=== PATIENT | male | born 1965 | race Caucasian/White ===

== ENCOUNTER 2020-05-25 21:05 | Inpatient (IN) | payer BC ==
[~2020-05-25] VITALS: Ht 167.6 cm; Wt 82.3 kg
[2020-05-25 21:51] LABS: EOSINOPHILS % (AUTO) 0.1 % (0-6); NEUTROPHILS # (AUTO) 5.4 X10'3 (1.8-7.7)
[2020-05-25 21:54] LABS: BASOPHILS % (AUTO) 0.3 % (0-1); HEMATOCRIT 46.2 % (42.0-52.0); HEMOGLOBIN 15.5 g/dl (14.0-17.9); MEAN CORPUSCULAR HEMOGLOBIN 29.5 PG (27.0-31.0); MEAN CORPUSCULAR HGB CONC 33.5 g/dL (33.0-36.5); MEAN PLATELET VOLUME 7.7 FL (7.4-10.4); MONOCYTES # (AUTO) 0.6 X10'3 (0-0.9); MONOCYTES % (AUTO) 9.2 % (2-12); NEUTROPHILS % (AUTO) 76.4 % (42-75); PLATELET COUNT 194 X10'3 (140-440); RED BLOOD COUNT 5.25 X10'6 (4.70-6.10); RED CELL DISTRIBUTION WIDTH 14.6 % (11.5-14.5)
[2020-05-25] MEDS ORDERED: dexamethasone sod phosphate 10mg/ml inj IV STA (21:54)
[2020-05-25] MEDS ORDERED: normal saline 1000ML IV soln IV ONE (21:55)
[2020-05-25] MEDS ORDERED: enoxaparin 100mg/ml syringe SUBCUT ONE (21:55)
[2020-05-25 22:00] LABS: ALANINE AMINOTRANSFERASE 57 U/L (12-78); ALBUMIN/GLOBULIN RATIO 0.7 (1.1-1.5); ALKALINE PHOSPHATASE 66 IU/L (46-116); ANION GAP 14 (8-16); ASPARTATE AMINO TRANSFERASE 64 U/L (10-37); BILIRUBIN,TOTAL 0.4 MG/DL (0.1-1.0); BLOOD UREA NITROGEN 17 MG/DL (7-18); BUN/CREATININE RATIO 16.3 (5.4-32.0); CALCIUM 8.5 MG/DL (8.5-10.1); CHLORIDE 105 MMOL/L (99-107); CREATININE 1.04 MG/DL (0.60-1.10); GLUCOSE 128 MG/DL (70-104); POTASSIUM 4.4 MMOL/L (3.5-5.1); SODIUM 140 MMOL/L (135-145); TOTAL CARBON DIOXIDE 21.4 MMOL/L (24-32); TOTAL PROTEIN 7.4 G/DL (6.4-8.2); eGFR 74 ML/MIN
[2020-05-25] MEDS ORDERED: REMDESIVIR 100MG inj. 200 MG in normal saline 100ml IV soln 100 ML IV ONE (22:20)
--- NOTE | 2020-05-25 22:58 | NUR ---
PT DENIES MEDICAL HISTORY WHEN ASKED STATES "THROAT CANCER IS MY ONLY HISTORY" BUT THEN PROVIDED RN WITH A LIST OF MEDICATIONS THAT INCLUDE METFORMIN & LISINOPRIL. WILL ATTEMPT TO REACH FAMILY TO OBTAIN ACCURATE MEDICAL HX
[2020-05-25] MEDS ORDERED: DIPH25CA83 PO (23:03)
[2020-05-25] MEDS ORDERED: SIMV-42 PO (23:03)
[2020-05-25] MEDS ORDERED: METH4TAB PO (23:03)
[2020-05-25] MEDS ORDERED: DAPA10TA PO (23:03)
[2020-05-25] MEDS ORDERED: METF500T PO (23:03)
[2020-05-25] MEDS ORDERED: ASPI-920 PO (23:03)
[2020-05-25] MEDS ORDERED: LISI10TA4 PO (23:03)
[2020-05-25] MEDS ORDERED: BETA15OI TOP (23:03)
[2020-05-25] MEDS ORDERED: FLO0.4C PO (23:03)
[2020-05-25] MEDS ORDERED: ALBU8.5H8 INH (23:03)
[2020-05-25] MEDS ORDERED: SEMA0.25 SQ (23:03)
[2020-05-25] MEDS ORDERED: HYDR1LIQ3 PO (23:03)
[2020-05-25] MEDS ORDERED: FAMO-128 PO (23:03)
[2020-05-25] MEDS ORDERED: calcium carbonate 500mg chew tablet PO ONE (23:15)
[2020-05-25 23:18] LABS: D-DIMER 1.23 MG/L FEU (0-0.50)
[2020-05-25] MEDS ORDERED: acetaminophen 325mg tablet PO PRN (23:50)
[2020-05-25] MEDS ORDERED: magnesium hydroxide 30ml (MOM) UD suspension PO PRN (23:50)
[2020-05-25] MEDS ORDERED: mag hydrox/Alum hydrox/simeth 30ml oral suspension PO PRN (23:50)
[2020-05-25] MEDS ORDERED: potassium Cl 20 mEq SR tablet PO PRN ×2 (23:50)
[2020-05-25] MEDS ORDERED: ondansetron/PF 4mg/2ml inj IV PRN (23:50)
[2020-05-25] MEDS ORDERED: potassium Cl 40MEQ/1/2NS 520ml 520 ML IV PRN ×2 (23:50)
[2020-05-25] MEDS ORDERED: dextrose 50%-water 50ml dispensing syringe IV PRN ×2 (23:55)
[2020-05-25] MEDS ORDERED: diphenhydrAMINE 25mg capsule PO PRN (23:55)
[2020-05-25] MEDS ORDERED: dextrose ORAL solution 15 GM/59 ML bottle PO PRN ×2 (23:55)
[2020-05-25] MEDS ORDERED: MESSAGE TO PHARMACY PO ONE (23:55)
[2020-05-25] MEDS ORDERED: glucagon, human recombinant 1mg kit SUBCUT PRN (23:55)
[2020-05-26] MEDS ORDERED: HYDROmorphone 2mg tablet PO PRN (00:05)
[2020-05-26] MEDS: normal saline 1000ml 1,000 ML IV SCH ×4 (00:37→23:34)
[2020-05-26] MEDS: aspirin 81mg tablet.DR PO SCH (07:44)
[2020-05-26] MEDS: atorvastatin 10mg tablet PO SCH (07:44)
[2020-05-26] MEDS: K and/or MAG REPLACEMENT MC SCH ×2 (07:44→20:00)
[2020-05-26] MEDS: famotidine 20mg tablet PO SCH (07:44)
[2020-05-26] MEDS: lisinopril 10 MG tablet PO SCH (07:45)
[2020-05-26] MEDS: dexamethasone 4mg/ml inj IV SCH (07:47)
[2020-05-26] MEDS: betamet diprop/prop gly 0.05% cream 15gm TP SCH ×2 (07:56→20:06)
[2020-05-26] MEDS ORDERED: dexamethasone inj 6 MG in normal saline 100ml IV soln 100 ML IV SCH (08:00)
[2020-05-26 08:02] LABS: BASOPHILS % (AUTO) 0 % (0-1); EOSINOPHILS % (AUTO) 0 % (0-6); HEMATOCRIT 46.2 % (42.0-52.0); HEMOGLOBIN 15.6 g/dl (14.0-17.9); LYMPHOCYTES # (AUTO) 0.8 X10'3 (1.1-4.8); MEAN CORPUSCULAR HEMOGLOBIN 30.1 PG (27.0-31.0); MEAN CORPUSCULAR HGB CONC 33.7 g/dL (33.0-36.5); MEAN CORPUSCULAR VOLUME 89.4 FL (78-98); MEAN PLATELET VOLUME 7.5 FL (7.4-10.4); MONOCYTES # (AUTO) 0.3 X10'3 (0-0.9); MONOCYTES % (AUTO) 5.8 % (2-12); NEUTROPHILS % (AUTO) 78.2 % (42-75); PLATELET COUNT 211 X10'3 (140-440); RED BLOOD COUNT 5.17 X10'6 (4.70-6.10); WHITE BLOOD COUNT 5.1 X10'3 (4.5-11.0)
[2020-05-26 08:21] LABS: ALANINE AMINOTRANSFERASE 57 U/L (12-78); ALBUMIN 2.8 G/DL (3.4-5.0); ALBUMIN/GLOBULIN RATIO 0.6 (1.1-1.5); ALKALINE PHOSPHATASE 67 IU/L (46-116); ANION GAP 18 (8-16); ASPARTATE AMINO TRANSFERASE 62 U/L (10-37); BILIRUBIN,TOTAL 0.4 MG/DL (0.1-1.0); BLOOD UREA NITROGEN 19 MG/DL (7-18); BUN/CREATININE RATIO 21.1 (5.4-32.0); CALCIUM 8.4 MG/DL (8.5-10.1); CHLORIDE 107 MMOL/L (99-107); GLUCOSE 157 MG/DL (70-104); POTASSIUM 4.9 MMOL/L (3.5-5.1); SODIUM 141 MMOL/L (135-145); TOTAL PROTEIN 7.4 G/DL (6.4-8.2); eGFR 87 ML/MIN
[2020-05-26 08:29] LABS: CLARITY,URINE CLEAR (Clear); COLOR,URINE YELLOW (Yellow); GLUCOSE, URINE 500 mg/dl (Neg); KETONES,URINE >=80 mg/dl (Neg); LEUKOCYTE ESTERASE ,URINE NEGATIVE (Neg); NITRITES, URINE NEGATIVE (Neg); OCCULT BLOOD,URINE NEGATIVE (Neg); PH,URINE 5.5 (4.8-8.0); PROTEIN,URINE 100 mg/dl (Neg); UROBILINOGEN,URINE 0.2 E.U/dL (0.2-1.0)
[2020-05-26 08:34] LABS: UA COLLECTION TYPE URINAL
[2020-05-26 08:35] LABS: BACTERIA,URINE NONE SEEN /HPF (Neg); MUCUS STRANDS NONE SEEN /LPF (Neg); RBC,URINE 0-2 /HPF (0-2); SQUAMOUS EPITHELIAL CELL,UR NONE SEEN /LPF (FEW); WBC,URINE NONE SEEN /HPF (0-4)
--- NOTE | 2020-05-26 18:43 | NUR ---
Patient in room ED 11. I have received report from GRACE Silva and had the opportunity to ask questions and assume patient care.
[2020-05-26 19:00] VITALS: BP 127/82
[2020-05-26] MEDS: insulin Lispro (HumaLOG) vial - multi-dose SQ SCH (19:37)
[2020-05-26] MEDS: REMDESIVIR 100MG inj. 100 MG in normal saline 100ml IV soln 100 ML IV SCH (20:05)
[2020-05-26] MEDS: enoxaparin 80mg/0.8ml syringe SUBCUT SCH (20:06)
[2020-05-26] MEDS: tamsulosin 0.4mg capsule PO SCH (20:06)
[2020-05-26 20:39] LABS: D-DIMER 1.01 MG/L FEU (0-0.50)
[2020-05-26] MEDS: insulin glargine (Lantus) pen - multi-dose SQ SCH (21:42)
[2020-05-26 22:00] VITALS: BP 134/79
[2020-05-27 02:00] VITALS: BP 129/86
[2020-05-27 06:00] VITALS: BP 102/72
--- NOTE | 2020-05-27 06:29 | NUR ---
Problems reprioritized. Patient report given, questions answered & plan of care reviewed with GRACE Pepe.
--- NOTE | 2020-05-27 06:44 | NUR ---
Received report from Winnie EDWARDS
[2020-05-27] MEDS: lisinopril 10 MG tablet PO SCH (07:46)
[2020-05-27] MEDS: famotidine 20mg tablet PO SCH (07:53)
[2020-05-27] MEDS: atorvastatin 10mg tablet PO SCH (07:53)
[2020-05-27] MEDS: aspirin 81mg tablet.DR PO SCH (07:53)
[2020-05-27] MEDS: betamet diprop/prop gly 0.05% cream 15gm TP SCH ×2 (07:54→19:05)
[2020-05-27] MEDS: dexamethasone 4mg/ml inj IV SCH (07:56)
[2020-05-27] MEDS: K and/or MAG REPLACEMENT MC SCH ×2 (08:00→20:00)
[2020-05-27 08:21] LABS: D-DIMER 0.59 MG/L FEU (0-0.50)
[2020-05-27 08:23] LABS: BASOPHILS % (AUTO) 0.1 % (0-1); EOSINOPHILS % (AUTO) 0 % (0-6); HEMATOCRIT 43.5 % (42.0-52.0); HEMOGLOBIN 14.4 g/dl (14.0-17.9); LYMPHOCYTES # (AUTO) 1.3 X10'3 (1.1-4.8); LYMPHOCYTES % (AUTO) 11.6 % (21-51); MEAN CORPUSCULAR HEMOGLOBIN 29.3 PG (27.0-31.0); MEAN CORPUSCULAR HGB CONC 33.2 g/dL (33.0-36.5); MEAN CORPUSCULAR VOLUME 88.3 FL (78-98); MEAN PLATELET VOLUME 7.6 FL (7.4-10.4); MONOCYTES # (AUTO) 1.3 X10'3 (0-0.9); MONOCYTES % (AUTO) 11.9 % (2-12); NEUTROPHILS # (AUTO) 8.5 X10'3 (1.8-7.7); NEUTROPHILS % (AUTO) 76.4 % (42-75); PLATELET COUNT 284 X10'3 (140-440); RED BLOOD COUNT 4.93 X10'6 (4.70-6.10); RED CELL DISTRIBUTION WIDTH 14.5 % (11.5-14.5); WHITE BLOOD COUNT 11.1 X10'3 (4.5-11.0)
[2020-05-27 08:49] LABS: ALANINE AMINOTRANSFERASE 54 U/L (12-78); ALBUMIN 2.6 G/DL (3.4-5.0); ALBUMIN/GLOBULIN RATIO 0.6 (1.1-1.5); ALKALINE PHOSPHATASE 58 IU/L (46-116); ANION GAP 15 (8-16); ASPARTATE AMINO TRANSFERASE 48 U/L (10-37); BILIRUBIN,TOTAL 0.2 MG/DL (0.1-1.0); BLOOD UREA NITROGEN 27 MG/DL (7-18); BUN/CREATININE RATIO 35.1 (5.4-32.0); C-REACTIVE PROTEIN 8.71 MG/DL (0.0-0.5); CALCIUM 8.2 MG/DL (8.5-10.1); CHLORIDE 108 MMOL/L (99-107); CREATININE 0.77 MG/DL (0.60-1.10); GLUCOSE 207 MG/DL (70-104); POTASSIUM 4.9 MMOL/L (3.5-5.1); SODIUM 138 MMOL/L (135-145); TOTAL CARBON DIOXIDE 15.3 MMOL/L (24-32); TOTAL PROTEIN 6.8 G/DL (6.4-8.2); eGFR > 90 ML/MIN
[2020-05-27] MEDS: insulin Lispro (HumaLOG) vial - multi-dose SQ SCH ×3 (09:11→19:13)
[2020-05-27 10:27] VITALS: BP 120/74
--- NOTE | 2020-05-27 12:23 | NUR ---
DM Consult: Pt A1C less than 7 and not appropriate for DM ed at this time. To f/u 05/30 for initial assessment. Addendum: 05/27/20 at [address] Amended: Links added.
[2020-05-27] MEDS ORDERED: temazepam 15mg capsule PO PRN (15:20)
[2020-05-27] MEDS: normal saline 1000ml 1,000 ML IV SCH (15:50)
[2020-05-27 16:46] VITALS: BP 119/71
[2020-05-27 18:00] VITALS: BP 133/83
--- NOTE | 2020-05-27 18:39 | NUR ---
Patient in room [facility] 4013. I have received report from My EDWARDS and had the opportunity to ask questions and assume patient care.
[2020-05-27] MEDS: magnesium hydroxide 30ml (MOM) UD suspension PO SCH (19:04)
[2020-05-27] MEDS: enoxaparin 80mg/0.8ml syringe SUBCUT SCH (19:04)
[2020-05-27] MEDS: REMDESIVIR 100MG inj. 100 MG in normal saline 100ml IV soln 100 ML IV SCH (19:05)
[2020-05-27 20:00] VITALS: BP 130/80
[2020-05-27] MEDS: tamsulosin 0.4mg capsule PO SCH (21:45)
[2020-05-27] MEDS: insulin glargine (Lantus) pen - multi-dose SQ SCH (22:01)
--- NOTE | 2020-05-28 | NUR ---
field start, pt refuse new IV, Addendum: 05/28/20 at 0306 by Lima Blackmon RN Amended: Links added.
[2020-05-28] MEDS: normal saline 1000ml 1,000 ML IV SCH ×3 (01:50→20:12)
[2020-05-28 02:00] VITALS: BP 99/67
--- NOTE | 2020-05-28 06:30 | NUR ---
Problems reprioritized. Patient report given, questions answered & plan of care reviewed with My EDWARDS.
[2020-05-28 07:05] VITALS: BP 129/81
[2020-05-28] MEDS: insulin Lispro (HumaLOG) vial - multi-dose SQ SCH ×3 (07:39→18:47)
[2020-05-28] MEDS: famotidine 20mg tablet PO SCH (07:41)
[2020-05-28] MEDS: dexamethasone 4mg/ml inj IV SCH (07:41)
[2020-05-28] MEDS: magnesium hydroxide 30ml (MOM) UD suspension PO SCH ×2 (07:41→20:10)
[2020-05-28] MEDS: lisinopril 10 MG tablet PO SCH (07:41)
[2020-05-28] MEDS: atorvastatin 10mg tablet PO SCH (07:41)
[2020-05-28] MEDS: aspirin 81mg tablet.DR PO SCH (07:41)
[2020-05-28] MEDS: K and/or MAG REPLACEMENT MC SCH ×2 (08:00→20:00)
[2020-05-28] MEDS: betamet diprop/prop gly 0.05% cream 15gm TP SCH ×2 (08:00→20:10)
[2020-05-28 08:43] LABS: BASOPHILS % (AUTO) 0.2 % (0-1); EOSINOPHILS % (AUTO) 0 % (0-6); HEMATOCRIT 46.9 % (42.0-52.0); HEMOGLOBIN 15.4 g/dl (14.0-17.9); LYMPHOCYTES # (AUTO) 0.9 X10'3 (1.1-4.8); LYMPHOCYTES % (AUTO) 7.1 % (21-51); MEAN CORPUSCULAR HEMOGLOBIN 28.8 PG (27.0-31.0); MEAN CORPUSCULAR HGB CONC 32.9 g/dL (33.0-36.5); MEAN CORPUSCULAR VOLUME 87.4 FL (78-98); MEAN PLATELET VOLUME 7.5 FL (7.4-10.4); MONOCYTES # (AUTO) 1.1 X10'3 (0-0.9); MONOCYTES % (AUTO) 8.7 % (2-12); NEUTROPHILS # (AUTO) 10.2 X10'3 (1.8-7.7); PLATELET COUNT 351 X10'3 (140-440); RED BLOOD COUNT 5.37 X10'6 (4.70-6.10); RED CELL DISTRIBUTION WIDTH 14.6 % (11.5-14.5); WHITE BLOOD COUNT 12.1 X10'3 (4.5-11.0)
[2020-05-28 08:58] LABS: ALANINE AMINOTRANSFERASE 65 U/L (12-78); ALBUMIN 2.9 G/DL (3.4-5.0); ALBUMIN/GLOBULIN RATIO 0.7 (1.1-1.5); ALKALINE PHOSPHATASE 66 IU/L (46-116); ASPARTATE AMINO TRANSFERASE 42 U/L (10-37); BILIRUBIN,TOTAL 0.4 MG/DL (0.1-1.0); BLOOD UREA NITROGEN 23 MG/DL (7-18); C-REACTIVE PROTEIN 3.51 MG/DL (0.0-0.5); CALCIUM 8.7 MG/DL (8.5-10.1); CHLORIDE 105 MMOL/L (99-107); CREATININE 0.82 MG/DL (0.60-1.10); GLUCOSE 230 MG/DL (70-104); POTASSIUM 4.7 MMOL/L (3.5-5.1); TOTAL CARBON DIOXIDE 20.5 MMOL/L (24-32); TOTAL PROTEIN 7.3 G/DL (6.4-8.2); eGFR > 90 ML/MIN
[2020-05-28 09:03] LABS: ANION GAP 12 (8-16); SODIUM 137 MMOL/L (135-145)
--- NOTE | 2020-05-28 12:00 | NUR ---
Patient did not want his blood sugar taken did not want to be bothered Addendum: 05/28/20 at 1451 by My Campuzano RN Amended: Links added.
[2020-05-28 18:00] VITALS: BP 135/84
--- NOTE | 2020-05-28 18:15 | NUR ---
RECEIVED REPORT FROM JONATAN EDWARDS AND ASSUMED PATIENT CARE
[2020-05-28] MEDS ORDERED: LORazepam 1 MG tablet PO ONE (20:00)
[2020-05-28] MEDS: REMDESIVIR 100MG inj. 100 MG in normal saline 100ml IV soln 100 ML IV SCH (20:09)
[2020-05-28] MEDS: enoxaparin 80mg/0.8ml syringe SUBCUT SCH (20:10)
[2020-05-28] MEDS: tamsulosin 0.4mg capsule PO SCH (20:10)
[2020-05-28 21:00] VITALS: BP 116/88
[2020-05-28] MEDS: insulin glargine (Lantus) pen - multi-dose SQ SCH (21:02)
[2020-05-29 06:00] VITALS: BP 126/73
--- NOTE | 2020-05-29 06:15 | NUR ---
received report from kvng schwarz
--- NOTE | 2020-05-29 06:28 | NUR ---
REPORT GIVEN TO LIZANDRO EDWARDS
[2020-05-29] MEDS: K and/or MAG REPLACEMENT MC SCH (07:07)
[2020-05-29] MEDS: dexamethasone 4mg/ml inj IV SCH (07:15)
[2020-05-29] MEDS: magnesium hydroxide 30ml (MOM) UD suspension PO SCH (07:16)
[2020-05-29] MEDS: atorvastatin 10mg tablet PO SCH (07:17)
[2020-05-29] MEDS: aspirin 81mg tablet.DR PO SCH (07:17)
[2020-05-29] MEDS: famotidine 20mg tablet PO SCH (07:17)
[2020-05-29] MEDS: lisinopril 10 MG tablet PO SCH (07:17)
[2020-05-29] MEDS: betamet diprop/prop gly 0.05% cream 15gm TP SCH (07:27)
[2020-05-29] MEDS: normal saline 1000ml 1,000 ML IV SCH (07:50)
[2020-05-29 08:35] LABS: BASOPHILS # (AUTO) 0.1 X10'3 (0-0.2); EOSINOPHILS % (AUTO) 0.1 % (0-6); HEMOGLOBIN 15.2 g/dl (14.0-17.9); LYMPHOCYTES # (AUTO) 1.1 X10'3 (1.1-4.8)
[2020-05-29 08:36] LABS: BASOPHILS % (AUTO) 0.5 % (0-1); HEMATOCRIT 45.9 % (42.0-52.0); LYMPHOCYTES % (AUTO) 7.1 % (21-51); MEAN CORPUSCULAR HEMOGLOBIN 29.1 PG (27.0-31.0); MEAN CORPUSCULAR HGB CONC 33.2 g/dL (33.0-36.5); MEAN CORPUSCULAR VOLUME 87.6 FL (78-98); MEAN PLATELET VOLUME 7.4 FL (7.4-10.4); MONOCYTES # (AUTO) 1.4 X10'3 (0-0.9); MONOCYTES % (AUTO) 9.2 % (2-12); NEUTROPHILS # (AUTO) 12.9 X10'3 (1.8-7.7); NEUTROPHILS % (AUTO) 83.1 % (42-75); PLATELET COUNT 353 X10'3 (140-440); RED BLOOD COUNT 5.24 X10'6 (4.70-6.10); RED CELL DISTRIBUTION WIDTH 14.9 % (11.5-14.5); WHITE BLOOD COUNT 15.5 X10'3 (4.5-11.0)
[2020-05-29 08:47] LABS: ALANINE AMINOTRANSFERASE 58 U/L (12-78); ALBUMIN 2.8 G/DL (3.4-5.0); ALBUMIN/GLOBULIN RATIO 0.7 (1.1-1.5); ALKALINE PHOSPHATASE 64 IU/L (46-116); ANION GAP 11 (8-16); ASPARTATE AMINO TRANSFERASE 32 U/L (10-37); BILIRUBIN,TOTAL 0.5 MG/DL (0.1-1.0); BLOOD UREA NITROGEN 22 MG/DL (7-18); BUN/CREATININE RATIO 25.9 (5.4-32.0); CALCIUM 8.3 MG/DL (8.5-10.1); CHLORIDE 105 MMOL/L (99-107); CREATININE 0.85 MG/DL (0.60-1.10); GLUCOSE 270 MG/DL (70-104); POTASSIUM 4.8 MMOL/L (3.5-5.1); SODIUM 134 MMOL/L (135-145); TOTAL CARBON DIOXIDE 18.5 MMOL/L (24-32); eGFR > 90 ML/MIN
[2020-05-29 08:48] LABS: D-DIMER 0.71 MG/L FEU (0-0.50)
[2020-05-29] MEDS: insulin Lispro (HumaLOG) vial - multi-dose SQ SCH ×2 (09:08→13:33)
[2020-05-29 10:00] VITALS: BP 115/69
--- NOTE | 2020-05-29 11:00 | NUR ---
O2 Sat at rest on room air:_89__% If below 89%: Recovery O2 Sat at rest on _3__LPM:_95__%:___% via nasal cannula (mask/nasal cannula, etc..) No further documentation is necessary. If O2 Sat did not drop below 89% on room air,ambulate patient on room air. O2 Sat while ambulating on room air:___% Recovery O2 Sat while ambulating on ___LPM:___% No further documentation is necessary. If patient does not drop below 89% while ambulating, he/she does not qualify for home O2.
[2020-05-29] MEDS ORDERED: DEC4T PO (11:57)
--- NOTE | 2020-05-29 12:01 | NUR ---
O2 Sat at rest on room air:_89__% If below 89%: Recovery O2 Sat at rest on __3_LPM:___%:95___% via nasal cannula (mask/nasal cannula, etc..) No further documentation is necessary. If O2 Sat did not drop below 89% on room air,ambulate patient on room air. O2 Sat while ambulating on room air:_85__% Recovery O2 Sat while ambulating on __3_LPM:__94_% No further documentation is necessary. If patient does not drop below 89% while ambulating, he/she does not qualify for home O2.
--- NOTE | 2020-05-29 12:07 | NUR ---
O2 Sat at rest on room air:_89__% If below 89%: Recovery O2 Sat at rest on ___LPM:___%:___% via (mask/nasal cannula, etc..) No further documentation is necessary. If O2 Sat did not drop below 89% on room air,ambulate patient on room air. O2 Sat while ambulating on room air:_85__% Recovery O2 Sat while ambulating on _3__LPM:__94_% No further documentation is necessary. If patient does not drop below 89% while ambulating, he/she does not qualify for home O2.
[2020-05-29] MEDS ORDERED: REMDESIVIR 100MG inj. 100 MG in normal saline 100ml IV soln 100 ML IV ONE (16:15)
[2020-05-29] MEDS ORDERED: ondansetron 4mg rapidly disintigrating tab PO ONE (16:20)
--- NOTE | 2020-05-29 17:00 | NUR ---
since pt is waiting for ride, pt asked nursing staff to not poke his finger for his bg at this time
--- NOTE | 2020-05-29 17:54 | NUR ---
PT D/C WITH INSTRUCTIONS, UNDERSTANDING OF INSTRUCTIONS AND W/ALL BELONGINGS INCLUDING 02 FROM [employer] IN WHEELCHAIR ACCOMPANIED BY NURSING STAFF TO PRIVATE VEHICLE TO GO HOME AND F/U W/PCP
== END 2020-05-29 17:55 | disposition home or self-care (01) | DRG 177 ==
LOC: ER 21:05 → ED HOLD 23:50 → ORTHO 4S 05-26 19:00
PROVIDERS: ADMIT Internal Medicine; ATTEND Internal Medicine
PROC: XW033E5 Introduction of Remdesivir Anti-infective into Peripheral Vein, Percutaneous Approach, New Technology Group 5 (ICD-10-PCS; principal; 2020-05-25)
DX: U07.1 COVID-19 (principal); J12.82 Pneumonia due to coronavirus disease 2019; J96.01 Acute respiratory failure with hypoxia; J44.0 Chronic obstructive pulmonary disease with (acute) lower respiratory infection; E11.9 Type 2 diabetes mellitus without complications; E66.3 Overweight; E78.5 Hyperlipidemia, unspecified; I10 Essential (primary) hypertension; K59.00 Constipation, unspecified; N40.0 Benign prostatic hyperplasia without lower urinary tract symptoms; Z68.29 Body mass index [BMI] 29.0-29.9, adult; Z79.82 Long term (current) use of aspirin; Z79.84 Long term (current) use of oral hypoglycemic drugs; Z79.899 Other long term (current) drug therapy; Z85.819 Personal history of malignant neoplasm of unspecified site of lip, oral cavity, and pharynx
CPT/HCPCS: 36415; 71045; 80053; 81001; 82948; 83036; 83605; 83880; 84145; 84484; 85025; 85379; 86140; 87040; 87081; 87635; 93005; 96374; 96375; 99285; C9803; G0378; J1100; J1650; J1815; J2405; J7030